=== PATIENT | female | born 1985 | race Caucasian/White ===

== ENCOUNTER 2017-08-17 10:07 | Emergency (ER) | payer OTHER ==
[2017-08-17 10:14] VITALS: BP 148/94
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
== END 2017-08-17 10:57 | disposition home or self-care (01) ==
LOC: ER 10:07
DX: M54.2 Cervicalgia (principal); M25.511 Pain in right shoulder; V89.2XXA Person injured in unspecified motor-vehicle accident, traffic, initial encounter
CPT/HCPCS: 99284